=== PATIENT | male | born 1995 | race Caucasian/White ===

== ENCOUNTER 2018-09-09 12:01 | Emergency (ER) | payer OTHER ==
[~2018-09-09] VITALS: Ht 180.3 cm; Wt 73.9 kg
== END 2018-09-09 12:43 | disposition home or self-care (01) ==
LOC: ER 12:01
DX: L05.91 Pilonidal cyst without abscess (principal)

== ENCOUNTER 2018-10-25 09:51 | Day surgery (SDC) | payer OTHER ==
[2018-10-25] MEDS ORDERED: PERCOCET 5-3251 EACH PO (16:01)
[2018-10-25] MEDS ORDERED: AMOX-CLAV 875-1 EACH PO (16:03)
== END 2018-10-25 19:40 | disposition home or self-care (01) ==
LOC: CIR.AMB 09:51
DX: L05.01 Pilonidal cyst with abscess (principal)